=== PATIENT | male | born 1930 | race Caucasian/White ===

== ENCOUNTER 2017-04-26 10:09 | Day surgery (SDC) | payer OTHER, MEDICARE ==
[~2017-04-26] VITALS: Ht 182.9 cm
[~2017-04-26 10:09] MED LIST: ANTIVERT-DPS25 MG PO; B-12 DOTS500 MCG PO; ELIQUIS5 MG PO; ENDOCET 5-3251 EACH PO; GLUCOTROL DPS10 MG PO; HYDRODIURIL-DPS25 MG PO; LEVOTHYROXINE50 MCG PO; MEVACOR40 MG PO; NEURONTIN DPS100 MG PO; NITROSTAT0.4 MG SL; NOVOLIN N,100 UNITS/ SQ; NOVOLIN-N,100 UNITS/ SQ; PRILOSEC DPS20 MG PO; PROSCAR DPS5 MG PO; RAZADYNE12 MG PO; TYLENOL DPS325 MG PO; VITAMIN D31000 UNIT PO; XALATAN2.5 ML OD; ZESTRIL DPS40 MG PO; ZOLOFT DPS100 MG PO; [UNRECOGNIZED DRUG - OTHER] OU
--- NOTE | 2017-04-28 08:10 | OR ---
ADMIT: 04/26/2017 RM/LOC: [facility] MR#: [id number] [address] [address] [address] [place] [address] Operative/Delivery Room Report SEX: M AGE: 86 : 1930 SURGERY DATE: 04/26/2017 SURGEON: Pedro Bryant MD SUPERVISOR METAL PLACING: None. PREOPERATIVE DIAGNOSES: 1. Lumbar disk degeneration. 2. Lumbar radiculopathy. POSTOPERATIVE DIAGNOSES: 1. Lumbar disk degeneration. 2. Lumbar radiculopathy. PROCEDURE PERFORMED: Right L3-L4, L4-L5 and L5-S1 transforaminal steroid injection. INDICATIONS FOR PROCEDURE: The patient is a pleasant gentleman with history of chronic low back pain with radicular symptoms comes here for planned right- sided lumbar transforaminal injection. ANESTHESIA: Local without sedation. ESTIMATED BLOOD LOSS: Zero. COMPLICATIONS: None immediately evident. DESCRIPTION OF THE PROCEDURE: After the patient was seen in the preoperative area, vitals signs were taken. Prior to the procedure, the risks, benefits, and alternative therapies were discussed at length. Patient consent was obtained and updated. The patient was taken to the fluoroscopy suite and placed on the fluoroscopy table in the prone position. Pressure points were padded to comfort, monitors applied, and a timeout performed. The patient's lumbosacral area was then prepped and draped sterilely using ChloraPrep. C-arm fluoroscopy was then brought in to identify the transverse process of L3, L4, and L5 on right. Lidocaine 1%, approximately 2 mL, was used to anesthetize the skin and underlying subcutaneous tissue. A 3.5-inch curved- tip 22-gauge spinal needle then was entered and advanced to make contact with the inferomedial portion of the transverse process on the right. The needle ADMIT: 04/26/2017 RM/LOC: [facility] MR#: [id number] [address] [id number] [address] [place] [address] Operative/Delivery Room Report SEX: M AGE: 86 : 1930 was then worked off in a corkscrew method and placed into the uppermost portion of the neural foramina. A total of 2 mL of Isovue was instilled showing excellent epidural, as well as nerve root sheath, spread. The patient had reproduction of his typical pain. The patient then received 3 mL of 80 mg of Depo Medrol and 0.25% Marcaine plain distributed at each level. The patient tolerated the procedure well, had no complications, and was taken to the PACU. PLAN: The patient was examined after 20 minutes and had 60% reduction of pain. Discharge instructions were given, followup scheduled. The patient was discharged home with a distribution driver. Pedro Bryant MD/ odin JOB #: [id number] CC: Pedro Bryant MD, Attending Physician Fox Lora, Family Physician
== END 2017-04-26 12:01 | disposition home or self-care (01) ==
LOC: SSS 10:09
PROC: 3E0R33Z Introduction of Anti-inflammatory into Spinal Canal, Percutaneous Approach (ICD-10-PCS; principal; 2017-04-26)
PROC: 3E0R3BZ Introduction of Anesthetic Agent into Spinal Canal, Percutaneous Approach (ICD-10-PCS; principal; 2017-04-26)
DX: G89.29 Other chronic pain (principal); M51.16 Intervertebral disc disorders with radiculopathy, lumbar region; M96.1 Postlaminectomy syndrome, not elsewhere classified; Z88.8 Allergy status to other drugs, medicaments and biological substances; I10 Essential (primary) hypertension; E78.5 Hyperlipidemia, unspecified; E11.9 Type 2 diabetes mellitus without complications; I48.91 Unspecified atrial fibrillation; Z87.891 Personal history of nicotine dependence; Z79.899 Other long term (current) drug therapy; Z98.890 Other specified postprocedural states